=== PATIENT | female | born 1945 | race Caucasian/White ===

== ENCOUNTER 2017-06-27 08:00 | Day surgery (SDC) | payer MEDICARE, OTHER ==
[~2017-06-27] VITALS: Ht 162.6 cm; Wt 85.3 kg
[~2017-06-27 08:00] MED LIST: GABAPENTIN300 MG PO; HYDROCHLOROTH12.5 M1 PO; NORVASC10 MG PO; SIMVASTATIN20 MG; ZESTRIL40 MG PO
[2017-06-27] MEDS ORDERED: VITAMIN D1000 UNIT PO (08:19)
--- NOTE | 2017-06-27 10:42 | NUR ---
06/27/17 1042 Maura Goss 1033 PATIENT ARRIVES TO PACU AWAKE, BUT DROWSY. RESP EVEN AND UNLABORED, NC AT 3 LITERS.
--- NOTE | 2017-07-01 19:54 | OR ---
[facility] [address], [place] [address] Signed DATE OF PROCEDURE: 06/27/17 PREOPERATIVE DIAGNOSIS: Guaiac-positive stool. POSTOPERATIVE DIAGNOSES A 10 mm subcutaneous lesion (?lipoma) at 95 cm. A 12 mm pedunculated polyp at 65 cm (tattoo). Minimal to moderate sigmoid diverticulosis. Moderate irritated internal hemorrhoids. PROCEDURE Colonoscopy with snare hot biopsy and injection of tattoo at 65 cm. ESTIMATED BLOOD LOSS: None. INDICATIONS Darnell is a 71-year-old female who was asked to see me for a colonoscopy. It turns out she has guaiac-positive stool. She explained that she has never seen any blood in the stool and her blood is not black. She spoke of a colonoscopy many years ago. There is no family history of colon cancer or polyps. I had met with Darnell in the office and I gave her a pamphlet on colonoscopy. We discussed the nature of the test along with its risks including but not limited to gas bloating, crampy abdominal pain, bleeding, perforation requiring surgery, and missed diagnosis. We also discussed the need for IV conscious sedation. She had expressed understanding and wished to proceed. PROCEDURE NOTE Darnell was taken into our endoscopy suite and placed in the left lateral decubitus position. She was given divided doses of 7 mg of Versed and 200 mcg of Fentanyl to cover the case. A digital rectal exam was performed and this was unremarkable. The adult colonoscope was introduced and advanced all around into the cecum under direct visualization of camera. Her prep was good. She had a tiny polyp on the ileocecal valve, which we removed with a hot biopsy forceps. Back at 95 cm, she had a submucosal smooth appearing lesion, most likely a lipoma. We went ahead and took 2 biopsies of that lesion. As expected, some fat had come out and it was a little bit bloody, but with a little cautery that stopped nicely. Back at 65 cm, she has a large pedunculated polyp, which we took off at the base of the stalk with the help of a snare. We caught the polyp in our basket and removed it. We then went back and injected some tattoo along the inferior edge of that polypectomy site. All hemostasis was good. The scope was withdrawn further and she does have moderate sigmoid diverticulosis with minimal to moderate in number and moderate in size and scattered about. The rectum itself was unremarkable. Upon retroflexion of scope, we did not see any additional tissue except for the internal hemorrhoids. They are moderate in size and little irritated. After this, the gas was Electronically Signed By: JUANPABLO MASSEY MD 07/01/171953 PATIENT NAME: DARNELL GUTIÉRREZ OPERATIVE REPORT DATE OF : 41 PHYSICIAN: JUANPABLO MASSEY MD REPORT #: [id number] REPORT IS CONFIDENTIAL AND NOT TO BE RELEASED WITHOUT AUTHORIZATION [facility] [address] [place] [id number] Signed suctioned out and colonoscope removed. Darnell tolerated the procedure quite well. RECOMMENDATIONS I will see Darnell back in my office in 7-14 days to review her results. Juanpablo Massey MD AB/[facility] /[id number] cc: Kevin Maravilla NP Electronically Signed By: JUANPABLO MASSEY MD 07/01/17 195 PATIENT NAME: DARNELL GUTIÉRREZ OPERATIVE REPORT DATE OF : 41 PHYSICIAN: JUANPABLO MASSEY MD REPORT #: [id number] REPORT IS CONFIDENTIAL AND NOT TO BE RELEASED WITHOUT AUTHORIZATION
== END 2017-06-27 11:10 | disposition home or self-care (01) ==
LOC: OPS 08:00 → DS 08:00 → OPS 09:45
PROVIDERS: Colon & Rectal Surgery
PROC: 0DBE8ZX Excision of Large Intestine, Via Natural or Artificial Opening Endoscopic, Diagnostic (ICD-10-PCS; 2017-06-27)
PROC: 3E0H8GC Introduction of Other Therapeutic Substance into Lower GI, Via Natural or Artificial Opening Endoscopic (ICD-10-PCS; 2017-06-27)
PROC: 0DBC8ZX Excision of Ileocecal Valve, Via Natural or Artificial Opening Endoscopic, Diagnostic (ICD-10-PCS; principal; 2017-06-27 09:45)
DX: D12.0 Benign neoplasm of cecum (principal); D12.6 Benign neoplasm of colon, unspecified; K64.8 Other hemorrhoids; K57.30 Diverticulosis of large intestine without perforation or abscess without bleeding; J44.9 Chronic obstructive pulmonary disease, unspecified; I10 Essential (primary) hypertension; F17.210 Nicotine dependence, cigarettes, uncomplicated; Z79.899 Other long term (current) drug therapy
CPT/HCPCS: 88305; 99152; 99153; J2250; J3010; J7120